=== PATIENT | female | born 1955 | race African-American/Black ===

== ENCOUNTER 2023-12-02 10:51 | Emergency (ER) | payer OTHER ==
[~2023-12-02] VITALS: Ht 154.9 cm; Wt 74.0 kg
[2023-12-02 10:55] VITALS: TEMP 98.4; O2SAT 96
[2023-12-02] MEDS ORDERED: CEPH500C2 MT (16:42)
[2023-12-02 17:13] LABS: CLARITY URINE CLOUDY (CLEAR); COLOR URINE YELLOW (YELLOW); GLUCOSE URINE NEGATIVE (NEGATIVE); KETONES URINE NEGATIVE (NEGATIVE); LEUKOCYTE ESTERASE URINE 3+ (NEGATIVE); NITRITE URINE NEGATIVE (NEGATIVE); OCCULT BLOOD URINE NEGATIVE (NEGATIVE); PROTEIN URINE TRACE (NEGATIVE); SPECIFIC GRAVITY URINE 1.026 (1.005-1.030)
[2023-12-02 17:37] LABS: BACTERIA URINE 2+; RBC URINE 0-2 /hpf (0-2); SQUAMOUS EPITHELIAL CELL URINE 1+ /lpf (RARE/1+); WBC URINE 15-25 /hpf (0-2)
[2023-12-02 17:38] LABS: AMORPHOUS SEDIMENT URINE 1+ /lpf
[2023-12-02 20:14] VITALS: BP 135/60; PULSE 78; RESP 20
== END 2023-12-02 20:25 | disposition home or self-care (01) ==
LOC: ER 10:51
DX: R07.0 Pain in throat (principal); R05.9 Cough, unspecified; Z88.2 Allergy status to sulfonamides
CPT/HCPCS: 71045; 81003; 99284